=== PATIENT | male | born 1990 | race Two or more races ===

== ENCOUNTER 2024-06-06 12:29 | Emergency (ER) | payer OTHER ==
[~2024-06-06] VITALS: Ht 188 cm; Wt 71.5 kg
--- NOTE | 2024-06-06 12:52 | ED.PDOC ---
History of Present Illness HPI Comments 34M previously healthy presents with several years of right sided throat lump. He reports that it is not painful and nothing seems to make it better or worse. He recently got medicaid and decided to come today and have it checked out. Patient denies any fever chills nausea vomiting diarrhea dysuria or polyuria sick contacts recent travel odynophagia or dysphagia. Chief Complaint: Sore Throat Time Seen by MD: 12:40 Primary Care Provider: none Allergies: Coded Allergies: NO KNOWN ALLERGIES (Unverified , 06/06/24) Information Source: Patient Mode of Arrival: Ambulatory Past Medical History PAST MEDICAL HISTORY: Denies Surgical History: Denies all surgeries All Other Systems: Reviewed and Negative Physical Exam General Appearance: No Apparent Distress, Normal HEENT: Pharynx Normal Neck: Other (Nontender right-sided immobile lump to the throat.) Respiratory: No Accessory Muscle Use Cardiovascular: No Murmur Breast Exam: Deferred Gastrointestinal: No Organomegaly, Non Tender, No Pulsatile Mass, Normal Bowel Sounds, Soft Genitalia: Deferred Pelvic: Deferred Rectal: Deferred Extremities: NOT DONE Neurologic: NOT DONE Cerebellar Function: NOT DONE Reflexes: NOT DONE Skin: NOT DONE Lymphatic: No Adenopathy Was a procedure done? Was a procedure done?: No Differential Dx Considerations may include: lymph node swelling, abscess, tumor X-Ray, Labs, Meds, VS Vital Signs Date Time Temp Pulse Resp B/P (MAP) Pulse Ox O2 Delivery O2 Flow Rate FiO2 06/06/24 12:42 99.4 98 17 143/104 (117) 98 Time of 1ST Reevaluation: 12:51 Reevaluation 1ST: Unchanged Patient Education/Counseling: Diagnosis, Treatment Family Education/Counseling: No Family Present Departure 1 Departure Time of Disposition: 12:51 (Patient with painless and right-sided neck swelling. We will refer patient to ENT.) Impression: Primary Impression: Mass of lateral neck Disposition: 01 HOME / SELF CARE / HOMELESS Condition: Stable Additional Instructions: It is important to follow up with an Ear Nose and Throat doctor. Please call Kamar Owens at [phone] for an appointment. For pain you can take the followinam: Ibuprofen 400mg with food Noon: Acetaminophen 1000mg 4pm: Ibuprofen 400mg with food 8pm: Acetaminophen 1000mg You should follow up with your regular doctor within one week to ensure you are doing better. If your symptoms worsen or you have any other concerns then please return to the ER. Discharged With: Self Critical Care Note Critical Care Time?: No Stability Stability form required: No Heart Score Heart Score: Heart Score Response (Comments) Value History N/A 0 EKG N/A 0 Age N/A 0 Risk Factors N/A 0 Troponin N/A 0 Total 0 MARKO BOWMAN MD Jun 06, 2024 12:52
[2024-06-06 13:19] VITALS: BP 137/87; PULSE 97; RESP 17; TEMP 98.7; O2SAT 97
== END 2024-06-06 13:21 | disposition home or self-care (01) ==
LOC: ER 12:39
DX: R22.1 Localized swelling, mass and lump, neck (principal)